=== PATIENT | female | born 2000 | race Two or more races ===

== ENCOUNTER 2020-06-27 21:20 | Emergency (ER) | payer SELFPAY | END 2020-06-28 03:33 | disposition left against medical advice (07) | LOC: EDBD 21:20 → ER 21:29 | DX: R50.9 Fever, unspecified (principal); M79.10 Myalgia, unspecified site; Z53.21 Procedure and treatment not carried out due to patient leaving prior to being seen by health care provider ==

== ENCOUNTER 2021-01-20 14:04 | Emergency (ER) | payer OTHER ==
[~2021-01-20] VITALS: Ht 177.8 cm; Wt 59.0 kg
[2021-01-20 14:09] VITALS: BP 140/76
== END 2021-01-20 16:07 | disposition left against medical advice (07) ==
LOC: ER 14:04
DX: M54.5 Low back pain (principal); Z53.21 Procedure and treatment not carried out due to patient leaving prior to being seen by health care provider

== ENCOUNTER 2022-06-13 02:38 | Emergency (ER) | payer OTHER ==
[~2022-06-13] VITALS: Ht 175.3 cm; Wt 63.6 kg
[2022-06-13] MEDS ORDERED: HYDROmorphone HCL 2 MG/ML VL/or syr IV ONE ×2 (03:15→06:00)
[2022-06-13] MEDS ORDERED: ONDANSETRON HCL 4 MG/2 ML VIAL IV ONE ×2 (03:15→06:15)
[2022-06-13 04:10] LABS: Basophils # (auto) 0.1 10 ^3/uL (0-0.2); Basophils % (auto) 0.7 % (0.0-2.0); Eosinophils # (auto) 0.8 10 ^3/uL (0-0.8); Eosinophils % (auto) 6.5 % (0.0-7.0); Hematocrit 41.2 % (36.0-46.0); Lymphocytes # (auto) 3.8 10 ^3/uL (0.4-5.4); Lymphocytes % (auto) 30.5 % (10.0-50.0); Mean Corpuscular Hemoglobin 28.6 pg (28.0-32.0); Mean Corpuscular Hgb Conc. 34.1 g/dL (32.0-36.0); Mean Corpuscular Volume 83.8 fL (80.0-100.0); Monocytes # (auto) 0.8 10 ^3/uL (0-1.3); Monocytes % (auto) 6.4 % (0.0-12.0); Neutrophils % (auto) 55.9 % (37.0-80.0); Nucleated Red Blood Cells % 0.1 %; Red Blood Cells 4.91 10^6/uL (4.0-5.20); Red Cell Distribution Width 14.7 % (11.8-14.3); White Blood Cell 12.6 10^3/uL (4.4-10.8)
[2022-06-13 04:34] LABS: Albumin 3.9 g/dL (3.4-5.0); BUN/Creatinine Ratio 16.2; Calcium 9.5 mg/dL (8.5-10.1); Potassium 3.2 mmol/L (3.5-5.1)
[2022-06-13 04:45] LABS: Bilirubin, Total 0.2 mg/dL (0.2-1.0); Total Protein 7.9 g/dL (6.4-8.2)
[2022-06-13 05:47] LABS: Urine Bacteria FEW /hpf (None Seen); Urine Blood 3+ /uL (Negative); Urine Mucus FEW (None Seen); Urine WBC 19 /hpf (0 - 5)
[2022-06-13] MEDS ORDERED: cefTRIAXone 1GM/50ML D5W 50 ML IV ONE (06:15)
[2022-06-13] MEDS ORDERED: TAM04C PO (06:38)
[2022-06-13] MEDS ORDERED: ONDA-144 PO (06:38)
[2022-06-13] MEDS ORDERED: CIPR-173 PO (06:38)
[2022-06-13] MEDS ORDERED: PERCOT PO (06:38)
[2022-06-13 06:45] VITALS: BP 143/78
== END 2022-06-13 06:39 | disposition home or self-care (01) ==
LOC: ER 02:38
DX: N20.0 Calculus of kidney (principal); N39.0 Urinary tract infection, site not specified; Z32.02 Encounter for pregnancy test, result negative
CPT/HCPCS: 36415; 74176; 80053; 81001; 81025; 83690; 85025; 96365; 96366; 96375; 96376; 99285; J0696; J1170; J2405

== ENCOUNTER 2024-01-06 15:34 | Emergency (ER) | payer OTHER ==
[~2024-01-06] VITALS: Ht 154.9 cm; Wt 57.6 kg
[~2024-01-06 15:34] MED LIST: CIPR-173 PO; ONDA-144 PO; PERCOT PO; TAMS-35 PO
[2024-01-06 15:45] VITALS: BP 123/88; PULSE 86; RESP 16; O2SAT 99
== END 2024-01-06 20:48 | disposition left against medical advice (07) ==
LOC: ER 15:34
DX: R51.9 Headache, unspecified (principal); M54.50 Low back pain, unspecified; V43.52XA Car driver injured in collision with other type car in traffic accident, initial encounter; Y93.89 Activity, other specified; Y92.410 Unspecified street and highway as the place of occurrence of the external cause; Y99.8 Other external cause status